=== PATIENT | male | born 1960 ===

== ENCOUNTER 2025-01-21 06:16 | Day surgery (SDC) | payer OTHER, SELFPAY | END 2025-01-21 12:34 | disposition home or self-care (01) | LOC: GI 06:16 | PROVIDERS: ATTENDING PHYSICIAN Internal Medicine | DX: Z12.11 Encounter for screening for malignant neoplasm of colon (principal); K64.8 Other hemorrhoids; K63.5 Polyp of colon; K62.1 Rectal polyp | CPT/HCPCS: 45385; 45380; 88305 ==